=== PATIENT | female | born 1960 ===

== ENCOUNTER 2020-04-02 11:00 | Inpatient (IN) | payer OTHER ==
[~2020-04-02] VITALS: Ht 160 cm; Wt 53.1 kg
[2020-04-02] MEDS ORDERED: CALCIUM PO (12:46)
[2020-04-02] MEDS ORDERED: PROGESTE PO (12:46)
[2020-04-02] MEDS ORDERED: VITAMIN D3 PO (12:47)
[2020-04-06] MEDS ORDERED: CALCIUM500 M1 (08:22)
[2020-04-06] MEDS ORDERED: PROGESTERONE200 MG (08:22)
[2020-04-06] MEDS ORDERED: VITAMIN D310 MC1 (08:23)
== END 2020-04-06 16:10 | disposition home or self-care (01) | DRG 627 ==
LOC: O/R 04-06 06:23
PROVIDERS: ADMIT Surgery; ATTEND Surgery
PROC: 0GBH0ZZ Excision of Right Thyroid Gland Lobe, Open Approach (ICD-10-PCS; principal; 2020-04-06 08:30)
DX: E04.1 Nontoxic single thyroid nodule (principal)